=== PATIENT | male | born 1995 | race American Indian/Alaskan Native ===

== ENCOUNTER 2017-10-18 15:17 | Emergency (ER) | payer BC ==
[2017-10-18 16:20] VITALS: BP 125/80
--- NOTE | 2017-10-18 18:14 | Emergency Department Report ---
Blank Doc - Documentation Documentation: Patient is a 22-year-old asthmatic male who states that for the past 5 days he' s had generalized weakness mild sore throat and mild cough mild body aches mild nausea. Patient states he feels that his immune system is weak. Her physical exam heart and lungs were fine does have some pharyngeal erythema with exudates rapid strep will be performed. This is negative patient most likely has a mild case of the flu
--- NOTE | 2017-10-18 18:56 | Emergency Department Report ---
Pediatric URI - HPI Chief Complaint: Weakness Stated Complaint: WEAKNESS Time Seen by Provider: 10/18/17 17:25 Duration: 5 Days Pain Location: Throat Severity: Mild Symptoms: Yes Sore Throat, Yes Cough, Yes Able to Tolerate Fluids, No Rhinorrhea , No Ear Pain, No Shortness of Breath, No Sick Contacts, No Good Urine Output, No Listless Behavior Other History: Recent is having some mild weakness cough congestion body aches and sore throat for the past several days. ED Review of Systems ROS: Stated complaint: WEAKNESS Other details as noted in HPI Comment: All other systems reviewed and negative ED Peds URI Exam - Exam General: Vital signs noted. No distress. Alert and acting appropriately. HEENT: Yes Pharyngeal Erythema, Yes Pharyngeal Exudates, Yes Moist Mucous Membranes, No Rhinorrhea, No Conjuctival Injection, No Frontal Tenderness, No Maxillary Tenderness Ear: Neither TM Bulge, Neither TM Erythema, Neither EAC Pain, Neither EAC Discharge, Neither Cerumen Impaction Neck: No Adenopathy, No Supple Lungs: No Good Air Exchange, No Wheezes, No Ronchi, No Stridor, No Cough, No Labored Respirations, No Retractions, No Use of Accessory Muscles, No Other Abnormal Lung Sounds Heart: Yes Regular, No Murmur Abdomen: Yes Normal Bowel Sounds, No Tenderness, No Peritoneal Signs Skin: No Rash, No Eczema Neurologic: Alert and oriented, no deficits. Musculoskeletal: Unremarkable. ED Course Vital Signs 10/18/17 16:17 Temperature 97.7 F Pulse Rate 75 Respiratory 16 Rate Blood Pressure 125/80 O2 Sat by Pulse 100 Oximetry ED Medical Decision Making - Medical Decision Making Rapid strep was negative. Patient will be discharged home with meds for symptomatic relief Critical care attestation.: If time is entered above; I have spent that time in minutes in the direct care of this critically ill patient, excluding procedure time. ED Disposition Clinical Impression: Viral pharyngitis, Flu-like symptoms Disposition: - TO HOME OR SELFCARE Is pt being admited?: No Does the pt Need Aspirin: No Condition: Stable Instructions: Pharyngitis (ED) Prescriptions: HYDROcodone/APAP 5-325 [[place] 5/325] 1 each PO Q6HR PRN #12 tablet PRN Reason: Pain predniSONE [Deltasone] 20 mg PO QDAY #5 tab Referrals: PRIMARY CARE, [Primary Care Provider] - 3-5 Days Forms: Work/School Release Form(ED)
== END 2017-10-18 19:03 | disposition home or self-care (01) ==
LOC: ED 15:17
DX: J02.8 Acute pharyngitis due to other specified organisms (principal); B97.89 Other viral agents as the cause of diseases classified elsewhere; R53.1 Weakness
CPT/HCPCS: 87116; 87430; 99283